=== PATIENT | male | born 1965 | race Caucasian/White ===

== ENCOUNTER 2022-03-22 12:49 | Outpatient (CLI) | payer MEDICAID, SELFPAY ==
--- NOTE | ~2022-03-22 | XR_ITS ---
EXAM: XR lumbar spine 2-3V DATE: 03/22/2022 13:09 HISTORY: M54.50 - Low back pain, unspecified, groin pain for years . COMPARISON: None available. FINDINGS: 5 nonrib-bearing lumbar-type vertebral bodies. Pedicles intact. Normal vertebral body alig nment. Vertebral body heights preserved. Multilevel moderate disc space narrowing and marginal osteop hytosis at all lumbar levels. Lower lumbar facet sclerosis. No fracture or dislocation. IMPRESSION: Multilevel moderate degenerative disc disease and facet arthropathy. Reviewed, dictated and finalized at location K. IMPRESSION: Multilevel moderate degenerative disc disease and facet arthropathy .
[2022-03-22 13:35] LABS: Basophils Absolute Auto 0.1 K/mm3 (0.0-0.1); Basophils Percent Auto 0.8 % (0.2-1.2); Eosinophils Absolute Auto 0.3 K/mm3 (0-0.3); Eosinophils Percent Auto 3.2 % (0-4.4); Hematocrit 44.4 % (42.0-52.0); Hemoglobin 15.1 g/dL (14.0-18.0); Immature Granulocyte Absolute 0.07 K/mm3 (0.00-0.031); Immature Granulocyte Percent A 0.8 % (0-0.5); Lymphocytes Absolute Auto 2.14 K/mm3 (0.9-3.2); Lymphocytes Percent Auto 23.5 % (18.3-44.2); Mean Corpuscular Hemoglobin 30.3 pg (26-34); Mean Platelet Volume 9.6 fl (7.4-10.4); Monocytes Absolute Auto 0.7 K/mm3 (0.1-0.6); Monocytes Percent Auto 7.7 % (2.6-8.5); Neutrophils Absolute Auto 5.9 K/mm3 (1.3-6.7); Platelet Count Result 281 k/mm3 (150-375); Red Blood Count 4.99 M/mm3 (4.6-6.20); Red Cell Distribution Width 12.7 % (11.5-14.5); White Blood Count 9.1 K/mm3 (4.5-10.0)
[2022-03-22 13:56] LABS: Hemoglobin A1C 5.5 % (<5.7)
[2022-03-22 14:16] LABS: Prostate Specific Antigen 0.5 ng/mL (< OR = 4.0)
[2022-03-22 14:53] LABS: Alanine Aminotransferase 69 U/L (6-50); Albumin Level 4.6 g/dL (3.5-5.1); Alkaline Phosphatase 85 U/L (38-126); Anion Gap -4 mmol/L (8-16); Aspartate Amino Transferase 41 U/L (17-59); Bilirubin,Total 0.3 mg/dL (0.2-1.3); Blood Urea Nitrogen 15 mg/dL (9-20); Calcium 9.3 mg/dL (8.4-10.2); Carbon Dioxide 35 mmol/L (22-30); Chloride 105 mmol/L (98-107); Cholesterol 315 mg/dL (0-200); Estimated Glomerular Filt Rate > 60; Glucose 98 mg/dL (65-110); LDL Cholesterol Direct 91 mg/dL; Potassium 4.2 mmol/L (3.4-5.0); Sodium 136 mmol/L (137-145)
[2022-03-22 14:54] LABS: Triglycerides 1245 mg/dL (<150)
== END 2022-03-22 12:50 | disposition home or self-care (01) ==
LOC: ANHIMG 12:57
PROVIDERS: PCP Internal Medicine; Visit Provider Nurse Practitioner
DX: G89.29 Other chronic pain (principal); Z12.5 Encounter for screening for malignant neoplasm of prostate; E78.5 Hyperlipidemia, unspecified; Z13.29 Encounter for screening for other suspected endocrine disorder; R73.9 Hyperglycemia, unspecified; M51.36 Other intervertebral disc degeneration, lumbar region
CPT/HCPCS: 36415; 72100; 80053; 80061; 83036; 84153; 85025; G0103

== ENCOUNTER 2022-05-20 08:00 | Outpatient (CLI) | payer OTHER, SELFPAY ==
[2022-05-24 14:48] LABS: Testosterone Free 35.7 pg/mL (35.0-155.0); Testosterone Total 194 ng/dL (250-1100)
== END 2022-05-20 08:01 | disposition home or self-care (01) ==
LOC: ANHGOSHLAB 08:02
PROVIDERS: PCP Internal Medicine; Visit Provider Nurse Practitioner
DX: R53.83 Other fatigue (principal)
CPT/HCPCS: 36415; 84402; 84403; 84443

== ENCOUNTER 2022-05-28 08:18 | Outpatient (CLI) | payer OTHER, SELFPAY ==
--- NOTE | ~2022-05-28 | MR_ITS ---
EXAMINATION: MR lumbar spine wo con DATE: 05/28/2022 09:27 INDICATION: Low back pain TECHNIQUE: Magnetic resonance imaging (MRI) of the lumbar spine was performed without intravenous con trast. Sequences included sagittal T2-weighted FSE, sagittal T2-weighted FS FSE, sagittal T1-weighted FSE, and axial T2-weighted FSE. COMPARISON: None FINDINGS: Transitional thoracolumbar segment which will be designated L1 and lumbarized S1 segment with 4 inter vening nonrib-bearing lumbar segments. 7 degrees lumbar levocurvature. 2 mm retrolisthesis L2 on L3 a nd 1-2 mm retrolisthesis L3 on L4, 3 mm retrolisthesis L4 on L5 and L5 on S1. Vertebral body heights are normal. Severe left side predominant disc height loss at L5-S1 and right-sided height loss at L4- L5, both with associated fibrofatty and fibrovascular degenerative endplate changes. Signal is otherw ise normal. Moderate disc height loss at L2-L3 and L3-L4. There are annular fissures at L2-L3 through L5-S1. The conus medullaris terminates at L2. There is normal signal in the caudal spinal cord. Para vertebral soft tissues are unremarkable. The following disc levels are specifically discussed: T12-L1: The disc does not extend beyond the endplate margin. There is mild left facet joint osteoarth ritis. There is no neural foraminal stenosis. There is no central canal stenosis. L1-L2: Disc is minimally bulging. There is left and moderate right facet joint osteoarthritis. There is minimal left neural foraminal stenosis. There is minimal central canal stenosis. L2-L3: Moderate diffuse disc bulge with superimposed annular fissure and right foraminal zone disc ex trusion with disc material extending 2-3 mm cephalad and caudal to the level of the endplates. There is moderate left and moderate to severe right facet joint osteoarthritis. There is mild left and mode rate right neural foraminal stenosis. There is mild central canal stenosis. L3-L4: Disc is mildly bulging with superimposed annular fissure and right foraminal zone disc extrusi on with disc material extending up to 2 mm cephalad and caudal to the level of the endplates. There i s mild left and moderate right facet joint osteoarthritis. There is mild bilateral, right greater griselda n left neural foraminal stenosis. There is mild central canal stenosis. L4-L5: Disc is mildly bulging with superimposed central to right foraminal zone disc extrusion with d isc material extending up to 3 mm caudal to the level of the superior endplate of L5. There is modera te right and severe left facet joint osteoarthritis. There is moderate right and mild to moderate lef t neural foraminal stenosis. There is mild central canal stenosis. L5-S1: Disc is bulging with superimposed annular fissure and central to left foraminal zone disc extr usion with disc material extending up to 3 mm caudal to the level of the superior endplate of S1. The re is moderate right and moderate to severe left facet joint osteoarthritis. There is mild to moderat e right and moderate left neural foraminal stenosis. There is mild central canal stenosis. S1-S2: The disc does not extend beyond the endplate margins. There is mild left and severe right face t osteoarthritis. There is mild left neural foraminal stenosis. There is no central canal stenosis. IMPRESSION: 1. Transitional thoracolumbar and lumbosacral segments with mild lumbar levocurvature. 2. Moderate to severe lower lumbar predominant spondylosis. Reviewed, dictated and finalized at location A. IMPRESSION: 1. Transitional thoracolumbar and lumbosacral segments with mild lumbar levocur vature. 2. Moderate to severe lower lumbar predominant spondylosis.
--- NOTE | ~2022-05-28 | MR_ITS ---
EXAMINATION: MR knee LT wo con DATE: 05/28/2022 09:27 INDICATION: Left knee pain TECHNIQUE: Magnetic resonance imaging (MRI) of the left knee was performed without intravenous contra st. Sequences included axial PD-weighted FS FSE, coronal PD-weighted FSE and PD-weighted FS FSE, sagi ttal PD-weighted FSE, and sagittal T2-weighted FS FSE. COMPARISON: Left knee x-rays 05/16/2022 FINDINGS: Medial compartment: Apical tear at the junction of the posterior horn and body of the medial meniscus in a background of degenerative signal change. Moderate diffuse thinning of cartilage. Mild osteophytosis. Lateral compartment: Meniscus intact. Mild diffuse cartilage thinning. Mild osteophytosis. Patellofemoral compartment: Moderate cartilage thinning and partial-thickness cartilage abnormalities along the medial facet mild osteophytosis. Retinacula intact. Ligaments and tendons: ACL, PCL, MCL, and LCL are intact. Flexor and extensor tendons are intact. Fluid: Small volume joint fluid. Subchondral/subcortical cyst in the posterior aspect of the medial tibial p lateau. Multiloculated cystic collection posterior to the distal femur, likely ganglion. Osseous/other: No suspicious focal or diffuse marrow signal. Minimal subchondral marrow edema on the median ridge of the patella IMPRESSION: 1. Apical tear at the junction of the posterior horn and body, medial meniscus. 2. Moderate tricompartmental osteoarthritic change. Reviewed, dictated and finalized at location K.
== END 2022-05-28 08:19 | disposition home or self-care (01) ==
PROVIDERS: PCP Internal Medicine; Visit Provider Nurse Practitioner
DX: M47.896 Other spondylosis, lumbar region (principal); M17.12 Unilateral primary osteoarthritis, left knee; S83.8X2A Sprain of other specified parts of left knee, initial encounter; X58.XXXA Exposure to other specified factors, initial encounter
CPT/HCPCS: 72148; 73721

== ENCOUNTER 2022-06-22 06:43 | Outpatient (RCR) | payer MEDICAID, SELFPAY ==
--- NOTE | 2022-06-22 12:57 | PCPTNOTE ---
Patient did not show up for scheduled initial evaluation this date.
== END 2022-09-13 10:09 | disposition home or self-care (01) ==
LOC: ANHGOSHPT 06:43
PROVIDERS: PCP Internal Medicine; Visit Provider Nurse Practitioner
DX: M54.50 Low back pain, unspecified (principal); G89.29 Other chronic pain
CPT/HCPCS: 99199

== ENCOUNTER 2022-07-01 17:10 | Emergency (ER) | payer OTHER, SELFPAY ==
--- NOTE | 2022-07-01 17:13 | ED.URI ---
HPI - URI/Sore Throat General Chief Complaint: Upper Respiratory Infection Stated Complaint: swollen throat, cough Time Seen by Provider: 07/01/22 17:13 Source: patient Mode of arrival: ambulatory Limitations: no limitations History of Present Illness HPI Narrative: Mr. Retana is a 56-year-old male patient presenting to the clinic today with complaints of sore throat, productive cough, and wheezing x4 days. He reports he had taken at home COVID test this afternoon around 1 PM and it was negative at that time. He denies any fever or chills. States he is bringing up yellow-white phlegm. Has history of COPD and is a current smoker. States he gets bronchitis every year around this time. Also feels as though his adenoids are swollen and he has pain with swallowing. Rates his pain currently a 5 out of 10. Related Data Home Medications Medication Instructions Recorded Confirmed lisinopril 20 1 tablet PO BID 02/14/22 05/16/22 mg-hydrochlorothiazide 12.5 mg tablet (Zestoretic) buspirone 10 mg tablet 10 mg PO BID 02/28/22 05/16/22 Allergies Allergy/AdvReac Type Severity Reaction Status Date / Time No Known Allergies Allergy Verified 07/01/22 17:26 Review of Systems Review of Systems: Pertinent positives per HPI. Patient denies any fever, chills, rash, headache, visual changes, dizziness, cough, runny nose, sore throat, shortness of breath, chest pain, palpitations, nausea, vomiting, diarrhea, constipation, abdominal pain, or any urinary issues. PMFSH Past Medical History Medical History Abdominal pain Anxiety Arthritis Bronchitis Chronic low back pain Congestion of nasal sinus COPD (chronic obstructive pulmonary disease) Coughing Degenerative disc disease Diarrhea Dizziness GERD (gastroesophageal reflux disease) Hair loss History of postoperative complication of surgical procedure Hyperglycemia Hyperlipidemia Hypertension IBS (irritable bowel syndrome) Left knee pain Light headedness Pain in left eye Patellofemoral arthritis Screening for endocrine disorder Screening PSA (prostate specific antigen) Seasonal allergies Sleep apnea Urinary hesitancy Wheezing Family History Family History Father Alcoholism in family member COPD (chronic obstructive pulmonary disease) Hypertension Mother Lung cancer Hypertension Sibling Hypertension Daughter Hypertension Other Arthritis Heart disease High cholesterol Social History Social History Social History: Caffeine-Soda Smoking packs per day: 1.5 Smoking cigarettes per day: 30.0 Years smoked: 15 Smoking pack-years: 22.50 Smoking status: Current every day smoker Tobacco type: cigarettes Second hand tobacco smoke exposure: Yes Alcohol intake: current Alcohol use details: everyday Substance use: current Substance use type: marijuana Gender identity (if verbalized by the patient): Male Comments At the time of my signature, I reviewed and agree with the nursing past medical, surgical, social, and family history. There is no relevant family history pertinent to the patient complaint. Exam Narrative: General: Well-developed, well nourished, in no apparent distress Head: Normocephalic, atraumatic Eyes: Pupils equally round and reactive to light bilaterally, EOM intact, sclera and conjunctive clear, no discharge, lids normal Ears: TMs intact and clear, ear canals ceruminous, no drainage, grossly hearing normal. Nose: Nares patent, no discharge, no inflammation, no sinus tenderness. Mouth: Oropharynx without lesions or masses, good dentition, MMM. Oropharynx red, postnasal drip Neck: Supple, trachea midline, positive enlargement of anterior cervical nodes, no thyroid masses or goiter palpable. Cardio: Regular rate and rhythm, s1
[2022-07-01 17:15] VITALS: BP 143/103; PULSE 62; RESP 16; TEMP 36.6; O2SAT 100
== END 2022-07-01 17:35 | disposition home or self-care (01) ==
PROVIDERS: Emergency Provider Nurse Practitioner Family; PCP Internal Medicine
DX: J40 Bronchitis, not specified as acute or chronic (principal); J02.9 Acute pharyngitis, unspecified; F17.210 Nicotine dependence, cigarettes, uncomplicated; J44.9 Chronic obstructive pulmonary disease, unspecified; K21.9 Gastro-esophageal reflux disease without esophagitis; E78.5 Hyperlipidemia, unspecified; I10 Essential (primary) hypertension; M17.10 Unilateral primary osteoarthritis, unspecified knee; G47.30 Sleep apnea, unspecified; F41.9 Anxiety disorder, unspecified
CPT/HCPCS: 99213; G0463

== ENCOUNTER 2022-07-26 12:36 | Outpatient (CLI) | payer OTHER, SELFPAY ==
--- NOTE | ~2022-07-26 | CT_ITS ---
EXAMINATION: CT lung screening DATE: 07/26/2022 12:51 INDICATION: Personal history of nicotine dependence, current smoker with 40 pack year history TECHNIQUE: Computed tomography (CT) of the chest was performed without intravenous contrast. The dose -length product (DLP) was 183.83 mGy-cm. Automated exposure control and iterative reconstruction tech [employer] were employed. COMPARISON: None FINDINGS: The lungs are free of acute opacities. No suspicious pulmonary nodules are identified. No p leural effusion or pneumothorax. No pathologically enlarged thoracic lymph nodes are identified. The heart size is normal. Calcified coronary artery atherosclerosis is noted. There is moderate thoracic spondylosis. IMPRESSION: 1. Lung-RADS category 1: Negative. Continue annual screening with noncontrast low-dose chest CT in 12 months. Reviewed, dictated and finalized at location A. IMPRESSION: 1. Lung-RADS category 1: Negative. Continue annual screening with noncontrast l ow-dose chest CT in 12 months.
== END 2022-07-26 12:37 | disposition home or self-care (01) ==
LOC: ANHIMG 12:38
PROVIDERS: PCP Internal Medicine; Visit Provider Nurse Practitioner
DX: Z12.2 Encounter for screening for malignant neoplasm of respiratory organs (principal); Z87.891 Personal history of nicotine dependence
CPT/HCPCS: 71271

== ENCOUNTER 2022-09-20 01:11 | Day surgery (SDC) | payer OTHER, SELFPAY ==
[2022-09-08 09:19] VITALS: BMI 27.6
[2022-09-20 07:46] VITALS: BP 159/82; PULSE 97; RESP 20; TEMP 36.4; O2SAT 98; BMI 26.9
[2022-09-20] MEDS: LACTATED RINGERS 1,000 ML 150 ML IV CONT (07:52)
--- NOTE | 2022-09-20 08:14 | WPDANESEPPF ---
Anes - Initial Pre Proc Eval Procedure: Operation Date: 09/20/22 10:00 Proposed Procedures p Esophagogastroduodenoscopy & Screening Colonoscopy - Cornel Cain MD Date/Time: 09/20/22 08:14 Surgeon: Cornel Cain MD Pre Op Diagnosis: GERD, neoplasm screening Patient Data Age: 56 Gender: M Height: 1.93 m Weight: 100.5 kg Last Vital Signs Temp 97.6 F 09/20/22 07:46 Pulse 97 09/20/22 07:46 Resp 20 09/20/22 07:46 BP 159/82 H 09/20/22 07:46 Pulse Ox 98 09/20/22 07:46 O2 Del Method Room Air 09/20/22 07:46 Allergies Allergy/AdvReac Type Severity Reaction Status Date / Time No Known Allergies Allergy Verified 09/20/22 07:45 Home Medications Medication Instructions Recorded Confirmed Type amlodipine 10 mg tablet 10 mg PO DAILY #90 tabs 05/17/22 09/08/22 Rx sertraline 100 mg tablet 200 mg PO DAILY #180 tabs 05/20/22 09/08/22 Rx albuterol sulfate 90 mcg/actuation 2 puff inhalation Q4H PRN 07/01/22 09/08/22 Rx aerosol inhaler (ProAir HFA) shortness of breath or wheezing 30 days #8.5 grams fluticasone 250 mcg-salmeterol 50 1 inh inhalation BID #60 ea 07/20/22 09/08/22 Rx mcg/dose blistr powdr for inhalation (Advair Diskus) Patient hx anesthesia problems: none Family hx anesthesia problems: none Results Review: All pre-operative results and documents have been reviewed as part of the pre-operative evaluation. [facility] Past Medical History Medical History (Updated 08/19/22 @ 12:35 by MARKOS Royal) Abdominal pain Anxiety Arthritis Bronchitis Chronic low back pain Congestion of nasal sinus COPD (chronic obstructive pulmonary disease) Coughing Degenerative disc disease Diarrhea Dizziness GERD (gastroesophageal reflux disease) Hair loss History of postoperative complication of surgical procedure Hyperglycemia Hyperlipidemia Hypertension IBS (irritable bowel syndrome) Left knee pain Light headedness Pain in left eye Patellofemoral arthritis Screening for endocrine disorder Screening PSA (prostate specific antigen) Seasonal allergies Sleep apnea Urinary hesitancy Wheezing Family History Family History Father Alcoholism in family member COPD (chronic obstructive pulmonary disease) Hypertension Mother Lung cancer Hypertension Sibling Hypertension Daughter Hypertension Other Arthritis Heart disease High cholesterol Social History Social History Social History: Caffeine-Soda Smoking packs per day: 0.5 Smoking cigarettes per day: 10.0 Years smoked: 218 Smoking pack-years: 109.00 Smoking status: Current every day smoker Tobacco type: cigarettes Second hand tobacco smoke exposure: Yes Alcohol intake: current Alcohol use details: every other day-6 beers Substance use: current Substance use type: marijuana Living arrangements: alone Gender identity (if verbalized by the patient): Male Spiritual care concerns: No Anes - Eval Final PreProcedure Day of Procedure 09/20/22 08:14 Patient weight: normal Heart: regular rate and rhythm Lungs: clear to auscultation Airway: Mallampati scale class II Neurological: alert and oriented Last oral intake: >/= 8 hours ASA classification: III Emergent: no Anesthetic plan: proceed Anesthesia type and monitoring: general GIVS and standard monitoring Results Review: All pre-operative results and documents have been reviewed as part of the pre-operative evaluation. Informed Consent: The patient's anesthetic plan and its attendant risks and benefits were discussed with the patient/family/POA. Questions were solicited and answers provided to the satisfaction of the patient/family/POA.
--- NOTE | 2022-09-20 08:43 | PM.HPGS ---
History of Present Illness History of Present Illness Consent: Risks, benefits, and alternatives have been discussed and questions answered. Patient agrees to proceed with procedure. Chief complaint: GERD, neoplasm screening Narrative: Power Retana is a 56 year old male with intermittent dysphagia, also loose stools. Never had scopes. Review of Systems Constitutional: Constitutional: Denies headache(s) and Denies weakness Eyes: Eyes: Denies blurry vision ENT: Reports Normal hearing present, Denies headache(s) and Denies neck pain Cardiovascular: Cardiovascular: Denies chest pain and Denies dyspnea Respiratory: Respiratory: Denies dyspnea Gastrointestinal: Gastrointestinal: Reports no additional gastrointestinal complaints Genitourinary: Genitourinary: Denies dysuria Musculoskeletal: Musculoskeletal: Denies neck pain Integumentary/Breasts: Skin/Breast: Denies dry skin Neurologic: Reports Normal hearing present, Denies headache(s) and Denies weakness Psychiatric: Psychiatric: Denies anxiety Endocrine: Endocrine: Denies change in body appearance Hematologic/Lymphatic: Hematologic/Lymphatic: Denies easy bleeding Allergic/Immunologic: Allergic/Immunologic: Denies urticaria PMFSH Past Medical History Medical History (Updated 08/19/22 @ 12:35 by Cherie Larios, MANUFACTURING APPLICATIONS ENGINEER-C) Abdominal pain Anxiety Arthritis Bronchitis Chronic low back pain Congestion of nasal sinus COPD (chronic obstructive pulmonary disease) Coughing Degenerative disc disease Diarrhea Dizziness GERD (gastroesophageal reflux disease) Hair loss History of postoperative complication of surgical procedure Hyperglycemia Hyperlipidemia Hypertension IBS (irritable bowel syndrome) Left knee pain Light headedness Pain in left eye Patellofemoral arthritis Screening for endocrine disorder Screening PSA (prostate specific antigen) Seasonal allergies Sleep apnea Urinary hesitancy Wheezing Family History Family History Father Alcoholism in family member COPD (chronic obstructive pulmonary disease) Hypertension Mother Lung cancer Hypertension Sibling Hypertension Daughter Hypertension Other Arthritis Heart disease High cholesterol Social History Social History Social History: Caffeine-Soda Smoking packs per day: 0.5 Smoking cigarettes per day: 10.0 Years smoked: 218 Smoking pack-years: 109.00 Smoking status: Current every day smoker Tobacco type: cigarettes Second hand tobacco smoke exposure: Yes Alcohol intake: current Alcohol use details: every other day-6 beers Substance use: current Substance use type: marijuana Living arrangements: alone Gender identity (if verbalized by the patient): Male Spiritual care concerns: No Meds Home Medications and Allergies Home Medications Medication Instructions Recorded Confirmed Type amlodipine 10 mg tablet 10 mg PO DAILY #90 tabs 05/17/22 09/08/22 Rx sertraline 100 mg tablet 200 mg PO DAILY #180 tabs 05/20/22 09/08/22 Rx albuterol sulfate 90 mcg/actuation 2 puff inhalation Q4H PRN 07/01/22 09/08/22 Rx aerosol inhaler (ProAir HFA) shortness of breath or wheezing 30 days #8.5 grams fluticasone 250 mcg-salmeterol 50 1 inh inhalation BID #60 ea 07/20/22 09/08/22 Rx mcg/dose blistr powdr for inhalation (Advair Diskus) Allergies Allergy/AdvReac Type Severity Reaction Status Date / Time No Known Allergies Allergy Verified 09/20/22 07:45 Vital Signs Vital Signs - 24 hr 09/20/22 07:46 Temperature 97.6 F Pulse Rate 97 Respiratory Rate 20 Blood Pressure 159/82 H Pulse Oximetry 98 Oxygen Delivery Room Air Exam Const: General: comfortable and no acute distress HENMT: Face/Nose/Sinus: Normal nares present Eyes: General: appearance normal, both eyes and all related structures Neck: Neck: no JVD Res
--- NOTE | 2022-09-20 09:00 | SUR.OPER ---
EGD END 857 COLONOSCOPY START 899
[2022-09-20 09:14] VITALS: BP 114/69; PULSE 59; RESP 21; O2SAT 93
[2022-09-20 09:24] VITALS: BP 111/72; PULSE 69; RESP 19; O2SAT 100
[2022-09-20 09:34] VITALS: BP 122/80; PULSE 75; RESP 20; O2SAT 100
== END 2022-09-20 09:45 | disposition home or self-care (01) ==
PROVIDERS: PCP Internal Medicine; Visit Provider Internal Medicine Gastroenterology
PROC: 0DJ08ZZ Inspection of Upper Intestinal Tract, Via Natural or Artificial Opening Endoscopic (ICD-10-PCS; CPT 43235; principal; 2022-09-20 10:00)
DX: Z12.11 Encounter for screening for malignant neoplasm of colon (principal); K64.8 Other hemorrhoids; D12.5 Benign neoplasm of sigmoid colon; D13.1 Benign neoplasm of stomach; K21.9 Gastro-esophageal reflux disease without esophagitis; J44.9 Chronic obstructive pulmonary disease, unspecified; F41.9 Anxiety disorder, unspecified; I10 Essential (primary) hypertension; G47.30 Sleep apnea, unspecified; Z79.51 Long term (current) use of inhaled steroids; F17.210 Nicotine dependence, cigarettes, uncomplicated; F12.90 Cannabis use, unspecified, uncomplicated
CPT/HCPCS: 45385; 45380; 43239; 88305; J2704; J7120

== ENCOUNTER 2022-11-08 14:41 | Outpatient (CLI) | payer OTHER, SELFPAY ==
--- NOTE | ~2022-11-08 | MR_ITS ---
EXAMINATION: MR brain/brain stem wo/w con DATE: 11/08/2022 15:28 INDICATION: Frequent headaches. TECHNIQUE: Magnetic resonance imaging (MRI) of the brain and brainstem was performed without and with 20 mL MultiHance intravenous contrast. COMPARISON: None. FINDINGS: There are areas of increased T2-weighted signal intensity in the dick, which is within norm al limits for the patient's age. There is no intracranial hemorrhage, acute infarction, or abnormal i ntracranial mass lesion. The ventricles are normal in size. There is a small left mastoid effusion. T here is mild mucosal thickening in the paranasal sinuses. The orbits are normal. IMPRESSION: 1. Normal aging brain. Reviewed, dictated and finalized at location A. OGICAL TECHNICAL OFFICER IMPRESSION: 1. Normal aging brain.
== END 2022-11-08 14:42 | disposition home or self-care (01) ==
PROVIDERS: PCP Internal Medicine; Visit Provider Clinical Nurse Specialist
DX: R51.9 Headache, unspecified (principal)
CPT/HCPCS: 70553; A9577

== ENCOUNTER 2022-12-02 14:19 | Outpatient (CLI) | payer OTHER, SELFPAY ==
--- NOTE | ~2022-12-02 | US_ITS ---
EXAMINATION: US scrotum doppler DATE: 12/02/2022 15:18 INDICATION: Left testicular lump TECHNIQUE: Testicular sonogram utilizing grayscale and Doppler COMPARISON: None. FINDINGS: The right testis measures 5.2 x 2.5 x 2.9 cm. The left testis measures 4.5 x 2.4 x 3.3 cm T here is normal vascular flow to both testes. The right epididymis demonstrates a 1.2 cm cyst or sperm atocele. The left epididymis contains a 3.2 x 2.5 x 3.6 cm cyst versus spermatocele. There is no vari cocele or hydrocele. IMPRESSION: 1. Bilateral cysts or spermatoceles of the epididymides measuring up to 3.2 cm on the left. Urologic evaluation is recommended. Reviewed, dictated and finalized at location B. OR MAINFRAME DEVELOPER
== END 2022-12-02 14:20 | disposition home or self-care (01) ==
PROVIDERS: PCP Internal Medicine; Visit Provider Nurse Practitioner
DX: N50.89 Other specified disorders of the male genital organs (principal)
CPT/HCPCS: 76870; 93976

== ENCOUNTER 2022-12-05 01:27 | Day surgery (SDC) | payer OTHER, SELFPAY ==
[2022-11-28 10:52] VITALS: BMI 28.4
[2022-12-05 09:02] VITALS: BP 183/94; PULSE 69; RESP 18; TEMP 36.4; O2SAT 98; BMI 28.0
[2022-12-05] MEDS: LACTATED RINGERS 1,000 ML 150 ML IV CONT (09:22)
--- NOTE | 2022-12-05 09:29 | WPDANESEPPF ---
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 Patient Data Age: 57 Gender: M Height: 1.93 m Weight: 104.6 kg Last Vital Signs Temp 36.4 C L 12/05/22 09:02 Pulse 69 12/05/22 09:02 Resp 18 12/05/22 09:02 BP 183/94 H 12/05/22 09:02 Pulse Ox 98 12/05/22 09:02 O2 Del Method Room Air 12/05/22 09:02 Allergies Allergy/AdvReac Type Severity Reaction Status Date / Time No Known Allergies Allergy Verified 12/05/22 09:11 Home Medications Medication Instructions Recorded Confirmed Type amlodipine 10 mg tablet 10 mg PO DAILY #90 tabs 05/17/22 12/05/22 Rx albuterol sulfate 90 mcg/actuation 2 puff inhalation Q4H PRN 07/01/22 12/05/22 Rx aerosol inhaler (ProAir HFA) shortness of breath or wheezing 30 days #8.5 grams fluticasone 250 mcg-salmeterol 50 1 inh inhalation BID #60 ea 07/20/22 12/05/22 Rx mcg/dose blistr powdr for inhalation (Advair Diskus) hydrocodone 5 mg-acetaminophen 325 1 tablet PO Q4-6H PRN Pain 11/18/22 12/05/22 History mg tablet lisinopril 20 mg tablet 20 mg PO DAILY 11/18/22 12/05/22 History sertraline 100 mg tablet 100 mg PO DAILY 11/18/22 12/05/22 History fluticasone propionate 50 1 - 2 spray intranasal BID #16 mL 11/24/22 12/05/22 Rx mcg/actuation nasal spray,suspension (Flonase Allergy Relief) omeprazole 20 mg capsule,delayed 20 mg PO DAILY #30 caps 11/24/22 12/05/22 Rx release Patient hx anesthesia problems: none Family hx anesthesia problems: none Results Review: All pre-operative results and documents have been reviewed as part of the pre-operative evaluation. [facility] Past Medical History Medical History Abdominal pain Anxiety Arthritis Bronchitis Chronic low back pain Congestion of nasal sinus COPD (chronic obstructive pulmonary disease) Coughing Degenerative disc disease Diarrhea Dizziness GERD (gastroesophageal reflux disease) Hair loss History of postoperative complication of surgical procedure Hyperglycemia Hyperlipidemia Hypertension IBS (irritable bowel syndrome) Left knee pain Light headedness Pain in left eye Patellofemoral arthritis Screening for endocrine disorder Screening PSA (prostate specific antigen) Seasonal allergies Sleep apnea Urinary hesitancy Wheezing Family History Family History Father Alcoholism in family member COPD (chronic obstructive pulmonary disease) Hypertension Mother Lung cancer Hypertension Sibling Hypertension Daughter Hypertension Other Arthritis Heart disease High cholesterol Social History Social History Social History: Caffeine-Soda Smoking packs per day: 0.5 Smoking cigarettes per day: 10.0 Years smoked: 30 Smoking pack-years: 15.00 Smoking status: Current every day smoker Tobacco type: cigarettes Second hand tobacco smoke exposure: Yes Alcohol intake: current Drinks per week: 24 Alcohol use details: BEERS Substance use: current Substance use type: marijuana Lack of Transportation: No Lack of Food: Never True Current Housing: I Have Housing Concerned About Future Housing: No Difficulty Paying Gas/Electric Bills: No Difficulty Paying for Meds: No Currently Unemployed: No Education: Grade School Difficulty w/ Childcare or Family Care: No Living arrangements: alone Gender identity (if verbalized by the patient): Male Spiritual care concerns: No Anes - Eval Final PreProcedure Day of Procedure 12/05/22 09:29 Patient weight: overweight Heart: regular rate and rhythm Lungs: clear to auscultation Airway: Mallampati scale
--- NOTE | 2022-12-05 09:52 | PM.HPGS ---
History of Present Illness History of Present Illness Consent: Risks, benefits, and alternatives have been discussed and questions answered. Patient agrees to proceed with procedure. 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 during last EGD, need to reassess Review of Systems Constitutional: Constitutional: Denies headache(s) and Denies weakness Eyes: Eyes: Denies blurry vision ENT: Reports Normal hearing present, Denies headache(s) and Denies neck pain Cardiovascular: Cardiovascular: Denies chest pain and Denies dyspnea Respiratory: Respiratory: Denies dyspnea Gastrointestinal: Gastrointestinal: Reports no additional gastrointestinal complaints Genitourinary: Genitourinary: Denies dysuria Musculoskeletal: Musculoskeletal: Denies neck pain Integumentary/Breasts: Skin/Breast: Denies dry skin Neurologic: Reports Normal hearing present, Denies headache(s) and Denies weakness Psychiatric: Psychiatric: Denies anxiety Endocrine: Endocrine: Denies change in body appearance Hematologic/Lymphatic: Hematologic/Lymphatic: Denies easy bleeding Allergic/Immunologic: Allergic/Immunologic: Denies urticaria PMFSH Past Medical History Medical History (Updated 12/05/22 @ 09:54 by Cornel Cain MD) Abdominal pain Anxiety Arthritis Bronchitis Chronic low back pain Congestion of nasal sinus COPD (chronic obstructive pulmonary disease) Coughing Degenerative disc disease Diarrhea Dizziness GERD (gastroesophageal reflux disease) Hair loss History of postoperative complication of surgical procedure Hyperglycemia Hyperlipidemia Hypertension IBS (irritable bowel syndrome) Left knee pain Light headedness Pain in left eye Patellofemoral arthritis Polyp of stomach Screening for endocrine disorder Screening PSA (prostate specific antigen) Seasonal allergies Sleep apnea Urinary hesitancy Wheezing Family History Family History Father Alcoholism in family member COPD (chronic obstructive pulmonary disease) Hypertension Mother Lung cancer Hypertension Sibling Hypertension Daughter Hypertension Other Arthritis Heart disease High cholesterol Social History Social History Social History: Caffeine-Soda Smoking packs per day: 0.5 Smoking cigarettes per day: 10.0 Years smoked: 30 Smoking pack-years: 15.00 Smoking status: Current every day smoker Tobacco type: cigarettes Second hand tobacco smoke exposure: Yes Alcohol intake: current Drinks per week: 24 Alcohol use details: BEERS Substance use: current Substance use type: marijuana Lack of Transportation: No Lack of Food: Never True Current Housing: I Have Housing Concerned About Future Housing: No Difficulty Paying Gas/Electric Bills: No Difficulty Paying for Meds: No Currently Unemployed: No Education: Grade School Difficulty w/ Childcare or Family Care: No Living arrangements: alone Gender identity (if verbalized by the patient): Male Spiritual care concerns: No Meds Home Medications and Allergies Home Medications Medication Instructions Recorded Confirmed Type amlodipine 10 mg tablet 10 mg PO DAILY #90 tabs 05/17/22 12/05/22 Rx albuterol sulfate 90 mcg/actuation 2 puff inhalation Q4H PRN 07/01/22 12/05/22 Rx aerosol inhaler (ProAir HFA) shortness of breath or wheezing 30 days #8.5 grams fluticasone 250 mcg-salmeterol 50 1 inh inhalation BID #60 ea 07/20/22 12/05/22 Rx mcg/dose blistr powdr for inhalation (Advair Diskus) hydrocodone 5 mg-acetaminophen 325 1 tablet PO Q4-6H PRN Pain 11/18/22 12/05/22 History mg tablet lisinopril 20 mg tablet 20 mg PO DAILY 11/18/22 12/05/22 History sertraline 100 mg tablet 100 mg PO DAILY 11/18/22 12/05/22 History
[2022-12-05 10:17] VITALS: BP 145/76; PULSE 59; RESP 26; O2SAT 98
--- NOTE | 2022-12-05 10:22 | SUR.PHASEII ---
Made Dr. Leach and Dr. Black aware patient had broken tooth from yesterday 12/04/22. Patient had small piece come loose while in recovery. Patient states nothing feels different than it did before the procedure and that this tooth broke yesterday. Patient asked to have this piece of tooth thrown away. Dr. Leach and Dr. Black to bedside to speak with patient.
[2022-12-05 10:27] VITALS: BP 158/86; PULSE 56; RESP 18; O2SAT 99
[2022-12-05 10:37] VITALS: BP 165/98; PULSE 57; RESP 19; O2SAT 97
== END 2022-12-05 10:40 | disposition home or self-care (01) ==
PROVIDERS: PCP Internal Medicine; Visit Provider Internal Medicine Gastroenterology
PROC: 0DJ08ZZ Inspection of Upper Intestinal Tract, Via Natural or Artificial Opening Endoscopic (ICD-10-PCS; CPT 43235; principal; 2022-12-05 10:30)
DX: Z09 Encounter for follow-up examination after completed treatment for conditions other than malignant neoplasm (principal); K31.7 Polyp of stomach and duodenum; K21.9 Gastro-esophageal reflux disease without esophagitis; J44.9 Chronic obstructive pulmonary disease, unspecified; I10 Essential (primary) hypertension; E78.5 Hyperlipidemia, unspecified; K58.9 Irritable bowel syndrome, unspecified; G47.30 Sleep apnea, unspecified; F17.210 Nicotine dependence, cigarettes, uncomplicated; Z79.51 Long term (current) use of inhaled steroids
CPT/HCPCS: 43251; 88305; J2704; J7120

== ENCOUNTER 2022-12-29 13:29 | Outpatient (CLI) | payer OTHER, SELFPAY ==
--- NOTE | 2022-12-29 13:53 | ECHO_ITS ---
Patient Info Name: Power Willson Young Age: 57 years : 1965 Gender: Male Ht: 76 in Wt: 230 lbs BSA: 2.38 m2 HR: 59 bpm BP: 174 / 96 mmHg Technical Quality: Good Exam Date: 12/29/2022 2:01 PM Exam Location: [facility] Patient Status: Outpatient Admit Date: 12/29/2022 Staff Ordering Physician: Claudia Roberts NP Polymerization Helper: Sera Abbasi RDCS Attending Provider: Claudia Roberts NP Referring Physician: Armando DE SANTIAGO; Exam Type: CA echo doppler color flow Study Info Indications I10 - Essential (primary) hypertension Complete two-dimensional, color flow and Doppler transthoracic echocardiogram is performed. Summary 1. Complete two-dimensional, color flow and Doppler transthoracic echocardiogram is performed. 2. Left ventricular chamber dimension is normal. 3. Left ventricular systolic function is normal, estimated at 55-60%. 4. There is moderate concentric increased left ventricular wall thickness. 5. The left ventricular diastolic function is grade II diastolic dysfunction. 6. E/e' 8 is minimally elevated. 7. Global longitudinal strain is normal at -17.6%. 8. Left atrial chamber dimension is mildly enlarged. 9. There is mild aortic valve sclerosis. 10. No pulmonary hypertension, estimated pulmonary arterial systolic pressure is 29 mmHg. Left Ventricle E/e' 8 is minimally elevated. Global longitudinal strain is normal at -17.6%. Left ventricular chamber dimension is normal. Left ventricular systolic function is normal, estimated at 55-60%. There is moderate concentric increased left ventricular wall thickness. The left ventricular diastolic function is grade II diastolic dysfunction. Right Ventricle Right ventricular systolic function is normal and with normal TAPSE 2.9 cm. Right ventricular chamber dimension is normal. Left Atria Left atrial chamber dimension is mildly enlarged. Right Atria Right atrial chamber dimension is normal. Aortic Valve The aortic valve is trileaflet. There is mild aortic valve sclerosis. There is no aortic valve stenosis. There is no aortic valve regurgitation. Pulmonic Valve There is no pulmonic regurgitation. Mitral Valve There is no mitral valve stenosis. There is no mitral valve regurgitation. Tricuspid Valve There is no tricuspid valve regurgitation. No pulmonary hypertension, estimated pulmonary arterial systolic pressure is 29 mmHg. Pericardium/Pleural There is no pericardial effusion. Inferior Vena Cava Normal inferior vena cava with >50% collapse upon inspiration consistent with normal right atrial pressure, 5 mmHg. Aorta The aortic root size at the sinus of Valsalva is normal. Left Ventricular Outflow Tract Name Value Normal LVOT 2D LVOT Diameter 2.1 cm LVOT Doppler LVOT Peak Gradient 7 mmHg LVOT Mean Gradient 3 mmHg LVOT VTI 24 cm LVOT VTI/AV VTI Ratio 0.9 LVOT Stroke Volume 86 ml LVOT CO 4.6 l/min LVOT CI
== END 2022-12-29 13:30 | disposition home or self-care (01) ==
PROVIDERS: PCP Internal Medicine; Visit Provider Nurse Practitioner
DX: I10 Essential (primary) hypertension (principal)
CPT/HCPCS: 93306

== ENCOUNTER 2023-01-03 15:18 | Outpatient (RCR) | payer OTHER, SELFPAY ==
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
--- NOTE | 2023-03-03 16:25 | PCPTNOTE ---
PHYSICAL THERAPY DISCHARGE 03-03-23 Attending Provider: Claudia Roberts NP Patient:Power Retana Date of :1965 Power has not returned for any further treatments since the initial evaluation on 01/03/2023, for the diagnosis of dizziness. Therefore he will be discharged at this time. Thank you for referring this patient to [facility].
== END 2023-03-15 10:16 | disposition home or self-care (01) ==
LOC: ANHPT 15:18
PROVIDERS: PCP Internal Medicine; Visit Provider Nurse Practitioner
DX: R42 Dizziness and giddiness (principal)
CPT/HCPCS: 97110; 97162

== ENCOUNTER 2023-04-07 09:21 | Outpatient (CLI) | payer OTHER, SELFPAY ==
[2023-04-07 12:11] LABS: Basophils Absolute Auto 0.1 K/mm3 (0.0-0.1); Basophils Percent Auto 0.7 % (0.2-1.2); Eosinophils Absolute Auto 0.2 K/mm3 (0-0.3); Eosinophils Percent Auto 2.6 % (0-4.4); Hemoglobin 15.3 g/dL (14.0-18.0); Immature Granulocyte Absolute 0.03 K/mm3 (0.00-0.031); Immature Granulocyte Percent A 0.3 % (0-0.5); Lymphocytes Absolute Auto 2.05 K/mm3 (0.9-3.2); Lymphocytes Percent Auto 23.2 % (18.3-44.2); Mean Corpuscular HGB Conc 32.6 g/dl (32-36); Mean Corpuscular Hemoglobin 29.5 pg (26-34); Mean Corpuscular Volume 90.6 fl (80-100); Mean Platelet Volume 10.2 fl (7.4-10.4); Monocytes Absolute Auto 0.5 K/mm3 (0.1-0.6); Monocytes Percent Auto 5.9 % (2.6-8.5); Neutrophils Percent Auto 67.3 % (45.5-73.1); Platelet Count Result 307 k/mm3 (150-375); Red Blood Count 5.19 M/mm3 (4.6-6.20); Red Cell Distribution Width 12.8 % (11.5-14.5); White Blood Count 8.8 K/mm3 (4.5-10.0)
[2023-04-07 12:33] LABS: Alanine Aminotransferase 31 U/L (6-50); Albumin Level 4.7 g/dL (3.5-5.1); Alkaline Phosphatase 87 U/L (38-126); Anion Gap 7 mmol/L (8-16); Aspartate Amino Transferase 45 U/L (17-59); Bilirubin,Total 0.5 mg/dL (0.2-1.3); Blood Urea Nitrogen 19 mg/dL (9-20); Calcium 9.2 mg/dL (8.4-10.2); Carbon Dioxide 27 mmol/L (22-30); Chloride 106 mmol/L (98-107); Cholesterol 255 mg/dL (0-200); Estimated Glomerular Filt Rate > 60; Glucose 97 mg/dL (65-110); HDL Direct 30 mg/dL; Potassium 4.4 mmol/L (3.4-5.0); Sodium 140 mmol/L (137-145); Triglycerides 374 mg/dL (<150)
[2023-04-07 12:44] LABS: LDL Cholesterol Direct 145 mg/dL
[2023-04-07 12:57] LABS: Prostate Specific Antigen 0.4 ng/mL (< OR = 4.0)
[2023-04-07 13:18] LABS: Iron 68 ug/dL (49-181)
[2023-04-07 13:31] LABS: Percent Iron Saturation 21 % (20-50)
[2023-04-13 04:10] LABS: LH 3.1 mIU/mL (1.5-9.3); Prolactin 3.9 ng/mL (***)
[2023-04-13 12:04] LABS: Testosterone Free 46.9 pg/mL (35.0-155.0); Testosterone Total 237 ng/dL (250-1100)
== END 2023-04-07 09:22 | disposition home or self-care (01) ==
LOC: ANHGOSHLAB 09:22
PROVIDERS: PCP Internal Medicine; Visit Provider Internal Medicine
DX: E29.1 Testicular hypofunction (principal); I10 Essential (primary) hypertension; N52.9 Male erectile dysfunction, unspecified; Z79.890 Hormone replacement therapy
CPT/HCPCS: 36415; 80053; 80061; 83002; 83540; 83550; 84146; 84153; 84402; 84403; 84443; 85025

== ENCOUNTER 2023-05-22 14:43 | Outpatient (CLI) | payer OTHER, SELFPAY ==
--- NOTE | ~2023-05-22 | US_ITS ---
Procedure: Duplex Doppler examination of the bilateral carotids. Indication: Syncope Technique: Real time, color-flow and pulse wave Doppler examination of the bilateral carotids was performed. Findings: Soares scale ultrasonography of the right neck demonstrated minimal calcified plaque at the right carot id bulb. There was demonstration of normal color-flow and Doppler waveforms within the right common, internal and external carotid arteries. The peak systolic velocities in the right common, internal an d external carotid arteries were demonstrated to be 108 cm/sec, 93 cm/sec and 107 cm/sec respectively . The right ICA/CCA ratio was 1.1.The proximal right internal carotid artery demonstrates 0% stenosis relative to the normal distal artery lumen diameter. Soares scale sonography of the left neck demonstrated small calcified plaques at the left carotid bulb. There was demonstration of normal color-flow and wave forms within the left common, internal and ext ernal carotid arteries. The peak systolic velocities in the left common, internal and external caroti d arteries were demonstrated to be 86cm/sec, 73 cm/sec and 90 cm/sec respectively. The left ICA/CCA r atio was 0.9. The proximal left internal carotid artery demonstrates 0% stenosis relative to the norm al distal artery lumen diameter. There was antegrade flow demonstrated in the bilateral vertebral arteries. Impression: No hemodynamically significant stenosis of the bilateral internal carotid arteries. Antegrade flow in the bilateral vertebral arteries. Note: The methodology used is an indirect measurement validated against a direct method (such as the NASCET criteria) that compares diameters at the stenosis to the distal ICA. Reviewed, dictated and finalized at location . Impression: No hemodynamically significant stenosis of the bilateral internal carotid arter ies. Antegrade flow in the bilateral vertebral arteries. Note: The methodology used is an indirect measurement validated against a direct meth od (such as the NASCET criteria) that compares diameters at the stenosis to the distal ICA.
== END 2023-05-22 14:44 | disposition home or self-care (01) ==
LOC: ANHIMG 14:44
PROVIDERS: PCP Internal Medicine; Visit Provider Nurse Practitioner
DX: R55 Syncope and collapse (principal)
CPT/HCPCS: 93880

== ENCOUNTER 2023-05-26 08:39 | Outpatient (CLI) | payer OTHER, SELFPAY ==
--- NOTE | 2023-05-30 11:09 | WPDNEUROLOGY ---
Neurology EEG Report General Information Date of Study: 06/26/23 TEST eeg DIAGNOSIS Syncope and collapse CONDITION OF RECORDING awake drowsy and sleep EEG NUMBER [id number] CLINICAL HISTORY patient reports he has had 3 episodes of becoming sweaty dizzy then losing consciousness for few seconds he does also have intermittent dizziness throughout most of the days. EEG DESCRIPTION Basic resting occipital frequency consists of low voltage 9 to 11 hertz per 2nd alpha admixed with low-voltage 15 to 18 hertz per 2nd beta. During drowsiness low-voltage beta activity seen diffusely. Bilateral symmetrical sleep activity seen during sleep. Hyperventilation not done. Photic stimulation produced normal drive. Intermittent regular EKG artifact is noted throughout the tracing. Non paroxysmal. Nonfocal. Nonlateralizing. IMPRESSION Normal record without evidence of any paroxysmal activity clinical correlation recommended
== END 2023-05-26 08:40 | disposition home or self-care (01) ==
LOC: ANHNEURO 08:40
PROVIDERS: PCP Internal Medicine; Visit Provider Internal Medicine
DX: R55 Syncope and collapse (principal)
CPT/HCPCS: 95816

== ENCOUNTER 2023-10-04 06:55 | Outpatient (CLI) | payer OTHER, SELFPAY ==
--- NOTE | ~2023-10-04 | CT_ITS ---
CT ANGIOGRAM NECK AND HEAD History: Syncope. Technique: Axial noncontrast imaging of the brain was performed. Serial spiral axial images through t he head and neck were then obtained during arterial phase IV injection of 100 cc of Omnipaque 350. 3- D postprocessing and MIP images were then reconstructed on the remote workstation. Dose reduction magaly hnique was used on this scan by utilizing automated exposure control and iterative reconstruction magaly hnique. The dose-length product (DLP) was 1907.34 mGy-cm. CTA neck findings: Bilateral vertebral arteries are patent. Bowel, carotid, internal carotid, and ex ternal carotid arteries are patent. No large vessel occlusion. No stenosis or aneurysm. Small calcifi ed plaques are present about the left carotid bifurcation without stenosis. The proximal right music internship al carotid artery demonstrates 0% stenosis relative to the normal distal artery lumen diameter. The p roximal left internal carotid artery demonstrates 0% stenosis relative to the normal distal artery gabriella men diameter. CTA head findings: Distal vertebral arteries, basilar artery, and posterior cerebral arteries are pat ent. Distal internal carotid arteries, middle cerebral arteries, and anterior cerebral arteries are p atent. No large vessel occlusion. No stenosis or aneurysm. Axial noncontrast imaging of the brain is unremarkable. No intracranial hemorrhage, mass lesion, or a cute infarct seen. Soares-white differentiation preserved. Ventricles and subarachnoid spaces are unrem arkable. Paranasal sinuses and mastoid air cells are clear. No mass effect or midline shift. Impression: Unremarkable exam. Reviewed, dictated and finalized at location . ER SIFTER HELPER Impression: Unremarkable exam.
[2023-10-04 07:17] LABS: Estimated Glomerular Filt Rate > 60
== END 2023-10-04 06:56 | disposition home or self-care (01) ==
PROVIDERS: PCP Internal Medicine; Visit Provider Student in an Organized Health Care Education/Training Program
DX: R55 Syncope and collapse (principal)
CPT/HCPCS: 70496; 70498; Q9967

== ENCOUNTER 2023-12-13 08:33 | Outpatient (CLI) | payer OTHER, SELFPAY ==
[2023-12-13 11:40] LABS: Basophils Absolute Auto 0.1 K/mm3 (0.0-0.1); Basophils Percent Auto 0.9 % (0.2-1.2); Eosinophils Absolute Auto 0.2 K/mm3 (0-0.3); Eosinophils Percent Auto 2.3 % (0-4.4); Hematocrit 48.1 % (42.0-52.0); Hemoglobin 15.8 g/dL (14.0-18.0); Immature Granulocyte Absolute 0.05 K/mm3 (0.00-0.031); Immature Granulocyte Percent A 0.5 % (0-0.5); Lymphocytes Percent Auto 14.2 % (18.3-44.2); Mean Corpuscular HGB Conc 32.8 g/dl (32-36); Mean Corpuscular Hemoglobin 28.9 pg (26-34); Mean Corpuscular Volume 87.9 fl (80-100); Mean Platelet Volume 10.1 fl (7.4-10.4); Monocytes Absolute Auto 0.7 K/mm3 (0.1-0.6); Monocytes Percent Auto 6.5 % (2.6-8.5); Neutrophils Percent Auto 75.6 % (45.5-73.1); Platelet Count Result 331 k/mm3 (150-375); Red Blood Count 5.47 M/mm3 (4.6-6.20); Red Cell Distribution Width 13.2 % (11.5-14.5); White Blood Count 10.5 K/mm3 (4.5-10.0)
[2023-12-13 12:31] LABS: Cholesterol 240 mg/dL (0-200); HDL Direct 32 mg/dL; Triglycerides 286 mg/dL (<150)
[2023-12-13 12:44] LABS: LDL Cholesterol Direct 146 mg/dL
[2023-12-13 12:50] LABS: Alanine Aminotransferase 20 U/L (6-50); Alkaline Phosphatase 95 U/L (38-126); Anion Gap 7 mmol/L (8-16); Aspartate Amino Transferase 51 U/L (17-59); Bilirubin,Total 0.5 mg/dL (0.2-1.3); Blood Urea Nitrogen 21 mg/dL (9-20); Calcium 9.4 mg/dL (8.4-10.2); Carbon Dioxide 30 mmol/L (22-30); Chloride 102 mmol/L (98-107); Estimated Glomerular Filt Rate > 60; Glucose 140 mg/dL (65-110); Potassium 3.5 mmol/L (3.4-5.0); Sodium 139 mmol/L (137-145)
[2023-12-13 13:08] LABS: Prostate Specific Antigen 0.6 ng/mL (< OR = 4.0)
[2023-12-16 09:49] LABS: Apolipoprotein B 138 mg/dL (<90)
[2023-12-18 13:10] LABS: Testosterone Free 244.4 pg/mL (35.0-155.0); Testosterone Total 791 ng/dL (250-1100)
== END 2023-12-13 08:34 | disposition home or self-care (01) ==
LOC: ANHGOSHLAB 08:35
PROVIDERS: Clinical Nurse Specialist; PCP Internal Medicine; Visit Provider Internal Medicine
DX: E29.1 Testicular hypofunction (principal); I10 Essential (primary) hypertension; Z79.890 Hormone replacement therapy; Z12.5 Encounter for screening for malignant neoplasm of prostate
CPT/HCPCS: 36415; 80053; 80061; 82172; 84153; 84402; 84403; 85025

== ENCOUNTER 2024-04-15 08:38 | Outpatient (CLI) | payer OTHER, SELFPAY ==
[2024-04-15 13:34] LABS: Basophils Absolute Auto 0.1 K/mm3 (0.0-0.1); Basophils Percent Auto 0.5 % (0.2-1.2); Eosinophils Absolute Auto 0.1 K/mm3 (0-0.3); Eosinophils Percent Auto 1.4 % (0-4.4); Hemoglobin 16.9 g/dL (14.0-18.0); Immature Granulocyte Absolute 0.04 K/mm3 (0.00-0.031); Immature Granulocyte Percent A 0.4 % (0-0.5); Lymphocytes Absolute Auto 1.48 K/mm3 (0.9-3.2); Lymphocytes Percent Auto 14.9 % (18.3-44.2); Mean Corpuscular HGB Conc 33.8 g/dl (32-36); Mean Corpuscular Hemoglobin 30.2 pg (26-34); Mean Corpuscular Volume 89.4 fl (80-100); Mean Platelet Volume 9.6 fl (7.4-10.4); Monocytes Absolute Auto 0.6 K/mm3 (0.1-0.6); Monocytes Percent Auto 6.5 % (2.6-8.5); Neutrophils Absolute Auto 7.6 K/mm3 (1.3-6.7); Neutrophils Percent Auto 76.3 % (45.5-73.1); Platelet Count Result 318 k/mm3 (150-375); Red Blood Count 5.59 M/mm3 (4.6-6.20); Red Cell Distribution Width 13.2 % (11.5-14.5); White Blood Count 9.9 K/mm3 (4.5-10.0)
[2024-04-15 13:41] LABS: Cholesterol 177 mg/dL (0-200); HDL Direct 47 mg/dL; Triglycerides 243 mg/dL (<150)
[2024-04-15 13:45] LABS: Alanine Aminotransferase 29 U/L (6-50); Albumin Level 4.6 g/dL (3.5-5.1); Alkaline Phosphatase 83 U/L (38-126); Anion Gap 8 mmol/L (4-12); Aspartate Amino Transferase 56 U/L (17-59); Bilirubin,Total 0.4 mg/dL (0.2-1.3); Blood Urea Nitrogen 17 mg/dL (9-20); Carbon Dioxide 31 mmol/L (22-30); Chloride 100 mmol/L (98-107); Cholesterol 174 mg/dL (0-200); Estimated Glomerular Filt Rate > 60; Glucose 113 mg/dL (65-110); HDL Direct 47 mg/dL; Potassium 3.3 mmol/L (3.4-5.0); Sodium 139 mmol/L (137-145); Triglycerides 240 mg/dL (<150)
[2024-04-15 13:52] LABS: LDL Cholesterol Direct 98 mg/dL
[2024-04-15 13:56] LABS: LDL Cholesterol Direct 99 mg/dL
[2024-04-19 15:33] LABS: Testosterone Free 294.3 pg/mL (35.0-155.0); Testosterone Total 873 ng/dL (250-1100)
[2024-04-30 15:19] LABS: Apolipoprotein B 95 mg/dL
== END 2024-04-15 08:39 | disposition home or self-care (01) ==
PROVIDERS: PCP Internal Medicine; Visit Provider Internal Medicine
DX: E29.1 Testicular hypofunction (principal); Z79.890 Hormone replacement therapy
CPT/HCPCS: 36415; 80053; 80061; 82172; 84402; 84403; 85025

== ENCOUNTER 2024-07-30 15:31 | Outpatient (CLI) | payer OTHER, SELFPAY ==
[2024-07-30 20:00] LABS: Anion Gap 8 mmol/L (4-12); Blood Urea Nitrogen 15 mg/dL (9-20); Calcium 9.1 mg/dL (8.4-10.2); Carbon Dioxide 28 mmol/L (22-30); Chloride 103 mmol/L (98-107); Estimated Glomerular Filt Rate > 60; Glucose 84 mg/dL (65-110); Magnesium 2.3 mg/dL (1.6-2.3); Potassium 3.7 mmol/L (3.4-5.0); Sodium 139 mmol/L (137-145)
[2024-08-05 14:49] LABS: Apolipoprotein B 102 mg/dL
== END 2024-07-30 15:32 | disposition home or self-care (01) ==
LOC: ANHGOSHLAB 15:33
PROVIDERS: PCP Internal Medicine; Visit Provider Internal Medicine
DX: E87.6 Hypokalemia (principal); E78.5 Hyperlipidemia, unspecified; Z79.890 Hormone replacement therapy
CPT/HCPCS: 36415; 80048; 82172; 83735

== ENCOUNTER 2024-09-05 08:18 | Outpatient (CLI) | payer OTHER, SELFPAY ==
--- NOTE | ~2024-09-05 | CT_ITS ---
EXAMINATION: CT sinus wo con DATE: 09/05/2024 08:31 INDICATION: Acute recurrent maxillary sinusitis. TECHNIQUE: Computed tomography (CT) of the paranasal sinuses was performed without intravenous contra st. Iterative reconstruction technique was employed. The dose-length product was 312.04 mGy-cm. COMPARISON: Head CT 10/04/2023 FINDINGS: There is mild mucosal thickening in right frontal sinus and the bilateral ethmoid sinuses. There is mild mucosal thickening in the sphenoid and maxillary sinuses. There is rightward deviation of the nasal septum. Right ostiomeatal unit is occluded, but there is a patent secondary right maxill viktor ostium. Left ostiomeatal unit is patent. There is extensive dental disease. There are clefts in t he hard palate and left anterior maxillary alveolar process. IMPRESSION: 1. Mild mucosal thickening in the paranasal sinuses. 2. Rightward deviation of the nasal septum. 3. Extensive dental disease. 4. 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 Reviewed, dictated and finalized at location A. OMER DATA TECHNICIAN
== END 2024-09-05 08:19 | disposition home or self-care (01) ==
PROVIDERS: PCP Internal Medicine; Visit Provider Otolaryngology
DX: J01.01 Acute recurrent maxillary sinusitis (principal); H69.90 Unspecified Eustachian tube disorder, unspecified ear; Z87.730 Personal history of (corrected) cleft lip and palate; K11.23 Chronic sialoadenitis; J34.2 Deviated nasal septum
CPT/HCPCS: 70486

== ENCOUNTER 2025-04-18 10:10 | Outpatient (RCR) | payer OTHER, SELFPAY ==
--- NOTE | 2025-04-18 11:58 | OPREHPOC ---
Outpatient Therapy Plan of Care This is a Multidisciplinary Plan of Care that may contain components documented by all disciplines (PT, OT, and ST.) PT Problem 1 PT Problem #1 Knowledge Deficit PT Goal 1 Goal / Goal Update *independent with HEP Target Visit 8 PT Problem 2 PT Problem #2 Pain PT Goal 1 Goal / Goal Update * pt report headaches 2x/wk Target Visit 8 PT Problem 3 PT Problem #3 Impaired Strength PT Goal 1 Goal / Goal Update *increase cervical thoracic strength: pt stand with shoulders in correct position/posture Target Visit 8 PT Problem 4 PT Problem #4 Impaired Vestibular System PT Goal 1 Goal / Goal Update 1* pt rate dizziness rating at worst of 5/10 ( 0= no and 10= cannot walk) 2* pt perform standing eye tracking R/L x 20 reps without increase in symptoms 3* pt perform standing 360' turn to R and L 1x without an increase in symptom 4* in standing , pt look up to ceiling 3x without issue Target Visit 8
--- NOTE | 2025-04-18 11:58 | PTOPEVAL1 ---
Assessment and note entered by Sona Carrero, PT Evaluation Information Assessment Status Evaluation ICD-10 Condition Codes (PT) Dizziness and Giddiness R42;vestibular rehab Onset December 2024 Subjective Information chronic issues with vertigo, but about 3 months ago, came on and has not stopped with antibiotics; also having headache on L side of head; have seen ENT and neuro dr; with hearing test: R ear is less hearing; ears pop all time- L worse; at eye dr-- have eye drops to not have glaucoma; wear reading glasses have anxiety and sometimes freak out when worried, get short of breath and sweating symptoms: dizziness, spinning, blacking out feeling, cannot talk or walk; increase: with looking down, turning around decrease: when gets worse, takes few hours to clear, but usually 10 minutes work: bo, not work consistently; not worked much since L knee arthroscopy, trying to get back to full work Reported Pain Level Pain Score 4: Self Report Additional Pain Score Comments pain range in the past few days 0-4/10; headache comes and goes over L eye and side of head sometimes get cold feeling over R side of face, sweating and anxious about the dizziness rating of dizziness: all time 5 and at worst 10/10 and black out Assessment PT Clinical Summary Power has the diagnosis of dizziness, vestibular rehab. He has a chronic history of dizziness, but for the past 3 months has stayed constantly dizzy, worse and blacks out. Dizziness Handicap Index rating of 72. Dizziness increases most with looking down and standing and turning around. Medical history: chronic neck and back pain, HTN, COPD, recurrent sinus infections, deviated septum , cleft palate, eye drops for glaucoma--always had trouble with his eyes & moving them makes him dizzy; decreased hearing R ear, headaches. With the evaluation: BPPV testing was negative for anterior, posterior and horizontal canals; eye tracking increased his symptoms; poor neck posture with muscle spasms over cervical and upper traps areas. Skilled PT services are indicated for modalities to decrease cervical- thoracic muscle tightness and therapeutic exercises to improve posture; vestibular rehab to improve and assist with adaptation of vestibular system, with education for home exercises, posture and safety. Plan of Care Interventions Electrical Stimulation,Hot Pack/Cold Pack,Manual Therapy,Mechanical Traction,Neuro Re-education, Patient/Caregiver Education,Therapeutic Activities ,Therapeutic Exercise,Ultrasound,Other Other Interventions taping PT Services Indicated Yes Treatment Frequency and 1-2x/wk for 8 visits Duration These treatments will address the objective and functional deficits as defined above. The patient will be advanced safely and appropriately in order for the patient to progress towards his/her prior level of function. Additional exercises will be introduced and as well as a comprehensive home exercise program upon discharge, if needed, ?to ensure carryover of functional gains achieved in the clinic. This treatment plan has been reviewed and agreement upon by the patient.
--- NOTE | 2025-04-18 14:35 | PCPTNOTE ---
pt was 10 minutes late for initial eval appt, stated he was not able to find us.
--- NOTE | 2025-05-23 10:40 | OPREHPOC ---
Outpatient Therapy Plan of Care This is a Multidisciplinary Plan of Care that may contain components documented by all disciplines (PT, OT, and ST.) PT Problem 1 PT Problem #1 Knowledge Deficit PT Goal 1 Goal / Goal Update *independent with HEP 05-23-25 d/c pt stopped attending therapy goals not addressed Target Visit 8 PT Problem 2 PT Problem #2 Pain PT Goal 1 Goal / Goal Update * pt report headaches 2x/wk 05-23-25 d/c pt stopped attending therapy goals not addressed Target Visit 8 PT Problem 3 PT Problem #3 Impaired Strength PT Goal 1 Goal / Goal Update *increase cervical thoracic strength: pt stand with shoulders in correct position/posture 05-23-25 d/c pt stopped attending therapy goals not addressed Target Visit 8 PT Problem 4 PT Problem #4 Impaired Vestibular System PT Goal 1 Goal / Goal Update 1* pt rate dizziness rating at worst of 5/10 ( 0= no and 10= cannot walk) 2* pt perform standing eye tracking R/L x 20 reps without increase in symptoms 3* pt perform standing 360' turn to R and L 1x without an increase in symptom 4* in standing , pt look up to ceiling 3x without issue 05-23-25 d/c pt stopped attending therapy goals not addressed Target Visit 8
--- NOTE | 2025-05-23 10:40 | PTOPDC ---
Assessment and note entered by Sona Carrero, PT Assessment Status Discharge - Pt Not Present ICD-10 Condition Codes (PT) Dizziness and Giddiness R42 Onset December 2024 Subjective Information pt was not seen this date. Assessment PT Clinical Summary Power received the PT evaluation on April 18 for the diagnosis of dizziness. He then called and canceled therapy on May 06. Discharge PT. The goals were not addressed. Plan of Care PT Services Indicated No
== END 2025-05-23 13:55 | disposition home or self-care (01) ==
LOC: ANHPT 10:10
PROVIDERS: PCP Internal Medicine
DX: R42 Dizziness and giddiness (principal)
CPT/HCPCS: 97110; 97162; 97530

== ENCOUNTER 2025-07-03 09:10 | Outpatient (CLI) | payer OTHER, SELFPAY ==
--- OUTSIDE RECORDS SUMMARY | 2025-07-03 09:25 | XMS_ITS | Clinical Summary ---
Author Organization [facility] Address [address] [place] [address] Phone Care Team Providers Care Instructor Physical Name Role Phone Roc Vivar DO Primary Care Provider Social History Tobacco Use Types Packs/Day Years Used Date Smoking Tobacco: Never Assessed Sex and Gender Information Value Date Recorded Sex Assigned at Not on file Legal Sex Male 12:41 AM CDT Gender Identity Not on file Sexual Orientation Not on file Plan of Treatment Health Maintenance Due Date Last Done Comments Hepatitis C Virus (HCV) Screening 1965 TdaP Immunization 1965 Cologuard 2009 Colonoscopy 2009 Colorectal Cancer Screening 2009 Immunochemical Fecal Occult Blood 2009 Pneumococcal Immunization (5 0+ years) (1 of 1 - PCV) 2014 Zoster Immunization (1 of 2) 2014 Influenza Immunization (#1) 2025 SARS-COV-2 Immunization ( - season) 2025 Respiratory Syncytial Virus (RSV) Immunization (Adult) (1 - 1-dose 75+ series) 2039 Hepatitis B Immunization Aged Out No longer eligible based on patient's age to complete this topic Human Papillomavirus (HPV) Immunization Aged Out No longer eligible b ased on patient's age to complete this topic Meningococcal Immunization (ACWY) Aged Out No longer eligible based on patient's age to complete this topic Rotavirus Immunization Aged Out No lo nger eligible based on patient's age to complete this topic Insurance [place] Care Teams Instructor Physical Relationship Specialty Start Date End Date Roc Vivar DO [facility] [place] [address] PCP - General Internal Medicine 07/27/22
--- OUTSIDE RECORDS SUMMARY | 2025-07-03 09:25 | XMS_ITS | Clinical Summary ---
Author Organization [facility] [employer] Address [address] [place] [address] Care Team Providers Care Stand Up Forklift Operator Name Role Phone Roc Vivar DO Primary Care Provider [phone] Source Comments [facility],non-owned Affiliates and Associated Physician Practices is amultiple site organization consisting of ambulatory clinics and hospital sitesin [place], [place], [place] and [place]. This disclosure is being madepursuant to the Care Everywhere program and may not contain all information available regarding this patient. Last updated 18.[facility] Allergies No known active allergies Medications * Be aware that medications may not be up to date on this document. Alwaysverify current medications with the patient. ciclopirox (Penlac) 8 % solutionIndicat ions:Onychomyco sis Apply to nail daily. 30 days supply. 6.6 mL 5 3 Active Additional Information Patient not taking.Reported on 07/19/2023 amLODIPine (Norvasc) 10 MG tablet 3 Active sertraline (Zoloft) 50 MG tablet 3 Active atorvastatin (Lipitor) 10 MG tablet Atorvastatin Calcium 10 MG Oral Tablet QTY: 30 tablet Days: 30 Refills: 0 Written: 04/10/23 Patient Instructions: 3 Active hydroCHLOROthia zide (Hydrodiuril) 25 MG tablet 3 Active LOSARTAN POTASSIUM PO Take 25 mg by mouth once daily Active HYDROcodone-Mark taminophen (NORCO PO) Take 1 tablet by mouth 3 times daily PRN Active oxyCODONE, immediate release, (Roxicodone) 5 MG tabletIndicatio ns:Lipoma of scalp Take 1 (one) tablet by mouth every 6 hours as needed for Pain 6 tablet 3 Active Additional Information Patient not taking.Reported on 08/22/2023 docusate sodium (Colace) 100 MG capsule Take 1 (one) capsule by mouth once daily as needed for Constipation 5 capsule 3 Active Additional Information Patient not taking.Reported on 10/03/2023 Advair Diskus 250-50 MCG/ACT inhaler Inhale 1 (one) puff by mouth 2 times daily 3 Active testosterone cypionate (Depo-Testoster one) 200 MG/ML injection 3 Active tadalafil (Cialis) 5 MG tablet 1 (one) tablet Activ e Active Problems Problem Noted Date Diagnosed Date Microscopic hematuria 09/05/2023 Spermatocele 09/05/2023 Tobacco use disorder 09/05/2023 Social History Tobacco Use Types Packs/Day Years Used Date Smoking Tobacco: Every Day Cigarettes Smokeless Tobacco: Never Tobacco Cessation:Ready to Q uit: Not Asked; Counseling Given: Not Answered Alcohol Use Standard Drinks/Week Comments Yes 0 (1 standard drink = 0.6 oz pur e alcohol) 3-4 days a week. 4-5 drinks Sex and Gender Information Value Date Recorded Sex Assigned at Not on file Legal Sex Male 10:18 AM CDT Gender Identity Not on file Sexual Orientation Not on file Last Filed Vital Signs Vital Sign Reading Time Taken Comments Blood Pressure 166/83 03/21/2024 10:18 AM CDT Pulse 63 03/21/2024 10:18 AM CDT Temperature 36.6 C (97.9 F) 03/21/2024 10:18 AM CDT Respiratory Rate 18 03/21/2024 10:18 AM CDT Oxygen Saturation 96% 03/21/2024 10:18 AM CDT Inhaled Oxygen Concentration - - Weight 95.3 kg (210 lb) 03/21/2024 10:18 AM CDT Height 193 cm (6' 4) 03/21/2024 10:18 AM CDT Body Mass Index 25.56 03/21/2024 10:18 AM CDT Plan of Treatment Health Maintenance Due Date Last Done Comments YOSELIN (AGES 45-75) - COLON CA SCREENING 1964 COLON MONITORING 1964 COLONOSCOPY - COLON CA SCREENING 1964 CT COLONOGRAPHY - COLON CA SCREENING 1964 Colorectal Cancer Screening 1964 FIT - COLON CA SCREENING 1964 FLEX SIG - COLON CA SCREENING 1964 HIV SCREENING 1979 HEPATITIS C SCREENING 11/06/1982 DTAP/TDAP/TD VACCINES (1 - Tdap) 1983 PNEUMOCOCCAL VACCINE 50+ (1 of 2 - PCV) 1983 ZOSTER VACCINE (1 of 2) 2014 COVID-19 VACCINE (1 - season) 2024 DEPRESSION SCREENING 10/30/2024 INFLUENZA VACCINE (#1) 2025 SCREENING FOR DIABETES 08/07/2026 3, 04/01/2023, 04/01/2023, Additional history exists Respiratory Syncytial Virus (RSV) Vaccine Pt: or over 60 yrs (1 - 1-dose 75+ series) 2039 HEPATITIS B VACCINE Aged Out No longe r eligible based on patient's age to complete this topic HIB VACCINE Aged Out No longer eligi ble based on patient's age to complete this topic HPV VACCINE Aged Out No longer eligi ble based on patient's age to complete this topic MENINGOCOCCAL (Group B) VACCINE SHARED DECISION-MAKING Aged Out No longer eligible based on patient's age to complete this topic MENINGOCOCCAL GROUPS A/C/Y/W VACCINE Aged Out No longer eligible based on patient's age to complete this topic Procedures Procedure Name Priority Date/Time Associated Diagnosis Comments BASIC METABOLIC PANEL (CALCIUM TOTAL) STAT 08/07/2023 8:12 AM CDT Pre-op evaluation from Last 3 Months or Most Recently Relevant to Health Maintenance Results * (ABNORMAL) BASIC METABOLIC PANEL (CALCIUM TOTAL) (08/07/2023 8:12 AM CDT) Glucose 108(H) 70 - 105 mg/dL 08/07/2023 8:44 AM CDT [facility] Sodium 140 136 - 145 mmol/L 08/07/2023 8:44 AM CDT [facility] Potassium 3.9 3.5 - 5.1 mmol/L 08/07/2023 8:44 AM CDT [facility] Chloride 111(H) 98 - 107 mmol/L 08/07/2023 8:44 AM CDT [facility] CO2 22 22 - 29 mmol/L 08/07/2023 8:44 AM CDT [facility] Calcium 8.7 8.4 - 10.4 mg/dL 08/07/2023 8:44 AM CDT [facility] Anion Gap 7 6 - 16 mmol/L 08/07/2023 8:44 AM CDT [facility] BUN 15 7 - 26 mg/dL 08/07/2023 8:44 AM CDT [facility] Creatinine 1.00 0.72 - 1.25 mg/dL 08/07/2023 8:44 AM CDT [facility] eGFR by CKD-EPI 87(L) >=90 mL/min/1.7 3 m2 08/07/2023 8:44 AM CDT [facility] Blood BLOOD SPECIMEN / Unknown Venipuncture / Unknown 08/07/2023 8:12 AM CDT 08/07/2023 8:19 AM CDT Cassie Larios MD LAB - CHEMISTRY ORDERABLES Aubrie [email or web address] Result Performing Organization Address City/State/[facility] Co de Phone Number [facility] [address] [place] [address] from Last 3 Months or Most Recently Relevant to Health Maintenance Insurance [facility] Care Teams Stand Up Forklift Operator Relationship Specialty Start Date End Date Roc Vivar DO PCP - General 01/31/23
--- OUTSIDE RECORDS SUMMARY | 2025-07-03 09:25 | XMS_ITS | Clinical Summary ---
Author Organization [facility] Address [address] [place] [address] Care Team Providers Care Order Selector Name Role Phone Roc Vivar DO Primary Care Provider [phone] Silas Solis MD Unavailable [phone] Allergies No known active allergies Medications sertraline (ZOLOFT) 100 mg tablet TAKE 1 AND 1/2 TABLETS BY MOUTH EVERY DAY 135 tablet 7 Active lisinopril (PRINIVIL,ZESTR IL) 40 mg tablet Take 1 tablet (40 mg total) by mouth daily. 90 tablet 7 Active albuterol HFA (PROVENTIL HFA) 90 mcg/actuation inhaler Inhale 2 puffs 4 (four) times a day as needed for wheezing. 1 Inhaler 1 7 Active diazePAM (VALIUM) 5 mg tablet Take 1 tablet (5 mg total) by mouth 3 (three) times a day as needed for muscle spasms. 10 tablet 8 Active naproxen (NAPROSYN) 500 mg tablet Take 1 tablet (500 mg total) by mouth 2 (two) times a day with meals. 30 tablet 8 Active lidocaine viscous (XYLOCAINE) 2 % solution Take 10 mL by mouth every 3 (three) hours 1 Bottle 0 Active traMADoL (ULTRAM) 50 mg tablet Take 1 tablet (50 mg total) by mouth every 6 (six) hours as needed for pain 20 tablet 1 Active amLODIPine (NORVASC) 10 mg tablet Take 1 tablet (10 mg total) by mouth daily 30 tablet 1 Active tadalafiL (CIALIS) 5 mg tablet 1 tablet (5 mg total) Active losartan (COZAAR) 25 mg tablet 4 Active hydroCHLOROthia zide (HYDRODIURIL) 25 mg tablet 3 Active HYDROcodone-margo taminophen (NORCO) 5-325 mg per tablet Active famotidine (PEPCID) 10 mg tablet Take 1 tablet (10 mg total) by mouth 2 (two) times a day Active testosterone cypionate (DEPO-TESTOTERO NE) 200 mg/mL injection 3 Active Advair Diskus 250-50 mcg/dose diskus inhaler Inhale 1 puff 2 (two) times a day 4 Active gabapentin (NEURONTIN) 100 mg capsule 4 Active rosuvastatin (CRESTOR) 5 mg tablet 4 Active azelastine (ASTELIN) 137 mcg (0.1 %) nasal spray Administer 1 spray into each nostril 2 (two) times a day Use in each nostril as directed 30 mL 11 5 Active fluticasone propionate (FLONASE) 50 mcg/actuation nasal spray Administer 2 sprays into each nostril daily 1 each 11 5 Active cetirizine (ZyrTEC) 10 mg tablet Take 1 tablet (10 mg total) by mouth daily 30 tablet 11 5 03/13/20 26 Active losartan (COZAAR) 25 mg tablet Take 1 tablet (25 mg total) by mouth daily for 9 doses 9 tablet 5 Active Active Problems Problem Noted Date Diagnosed Date Anxiety disorder 06/03/2024 Chronic obstructive pulmonary disease 06/03/2024 Hyperlipidemia 06/03/2024 Syncope and collapse 12/29/2023 HTN (hypertension) 12/29/2023 Lower urinary tract symptoms due to benign prostatic hyperplasia 12/29/2022 Primary erectile dysfunction 12/29/2022 Spermatocele 12/29/2022 Pain of lower extremity 10/18/2022 Acute bronchitis 11/09/2019 Acute bronchospasm 11/09/2019 Acute maxillary sinusitis 11/09/2019 Diverticulosis of large intestine without hemorr nichelle 11/11/2017 Acute low back pain 11/03/2017 Microscopic hematuria 11/03/2017 Assessment & Plan (11/03/2017 1:32 PM FABRICATION AND LAYOUT CRAFTSMAN): Ct abd/pel ordered to R/O kidney stones. Patient citing lack of insurance, and he isn't sure he will have the study done. Referred to urology for further eval/tx. Rx given for acute pain relief. Patient understands that we do not manage chronic pain at this office. History of acute pancreatitis 10/10/2017 Essential hypertension 10/10/2017 Assessment & Plan (11/03/2017 1:32 PM FABRICATION AND LAYOUT CRAFTSMAN): Hypertension is improving with treatment. Dietary sodium restriction. Regular aerobic exercise. Stop smoking. Continue current medications. Blood pressure will be reassessed at the next regular appointment. Reactive airway disease 10/10/2017 Tobacco use disorder 10/10/2017 Assessment & Plan (11/03/2017 1:33 PM FABRICATION AND LAYOUT CRAFTSMAN): Advised patient to quit. Alcohol abuse 10/10/2017 Encounters Date Type Department Care Team Description 06/26/2025 Telephone [facility] Medicine Otolaryngology [address] [place] [address] Jayden LincolnMS peace 06/08/2025 8:31 PM CDT - 06/08/2025 9:36 PM CDT Emergency [facility] Emergency Department [address] [place] [address] Primary hypertension (Primary Dx); Medication refill Discharge Disposition: Discharge to home or self care 05/13/2025 8:00 AM CDT Procedure visit [facility] Medicine Otolaryngology [address] [facility] [address] [place] [address] [place] [address] Shasha Neff Au.D. Dizziness and giddiness (Primary Dx) from Last 3 Months Immunizations Immunization Administration Dates Next Due Influenza, Unspecified 10/10/2017(Deferred: Chitra ent Refused) Surgical History Surgery Date Site/Laterality Comments CLEFT PALATE REPAIR ESOPHAGOGASTRODUODENOSCOPY 07/19/2022 ESOPHAGOGASTRODUODENOSCOPY 11/30/2022 - 12/27/2022 COLONOSCOPY 07/19/2022 Medical History Medical History Date Comments Pancreatitis 07/2017 Hypertension Alcohol abuse Tobacco abuse Asthma Colon polyp Esophageal polyp BPV (benign positional vertigo) Family History Medical History Relation Name Comments No Known Problems Brother COPD Father Hypertension Father Heart failure Mother Hypertension Mother Lung cancer Mother No Known Problems Sister Relation Name Status Comments Brother Father Mother Sister Social History Tobacco Use Types Packs/Day Years Used Date Smoking Tobacco: Every Day Cigarettes 2 15 Smokeless Tobacco: Never Tobacco Cessation:Ready to Q uit: Not Asked; Counseling Given: Not Answered Alcohol Use Standard Drinks/Week Comments Yes 0 (1 standard drink = 0.6 oz pur e alcohol) socially AUDIT-C Answer Date Recorded Q1: How often do you have a drink containing alcohol? 4 or more times a week 06/27/2024 Q2: How many drinks containi ng alcohol do you have on a typical day when you are drinking? 5 or 6 Q3: How often do you have si x or more drinks on one occasion? Weekly 06/27/2024 Personal Safety Answer Date Recorded Have you ever been in or are you currently in a harmful physical or emotional relationship or is someone making you feel afraid or unsafe? Denies 06/08/2025 Sex and Gender Information Value Date Recorded Sex Assigned at Not on file Legal Sex Male 7:09 PM FABRICATION AND LAYOUT CRAFTSMAN Gender Identity Not on file Sexual Orientation Not on file Obstetrics History Last Filed Vital Signs Vital Sign Reading Time Taken Comments Blood Pressure 180/87 06/08/2025 9:30 PM CDT Pulse 54 06/08/2025 9:30 PM CDT Temperature 36.8 C (98.3 F) 06/08/2025 8:14 PM CDT Respiratory Rate 18 06/08/2025 8:14 PM CDT Oxygen Saturation 96% 06/08/2025 9:30 PM CDT Inhaled Oxygen Concentration - - Weight 97.5 kg (215 lb) 06/08/2025 8:14 PM CDT Height 193 cm (6' 4) 06/08/2025 8:14 PM CDT Body Mass Index 26.17 06/08/2025 8:14 PM CDT Plan of Treatment Health Maintenance Due Date Last Done Comments Prostate Cancer Screening-PSA 1964 Hepatitis B Screening 1982 Regular Well Visit/Exam 18-64 1982 Pneumococcal vaccine <65 (1 of 2 - PCV) 1983 Lung Cancer Screening 2014 Zoster Vaccine (1 of 2) 2014 Depression Screening 10/10/2018 10/10/2017, 07/28/2017, 07/04/2017, Additional history exists Colon Cancer Screening-Colonoscopy Discontinued DTaP/Tdap/Td Vaccine Discontinued Hepatitis C Screening Discontinued Influenza Vaccine Discontinued Insurance [facility] Care Teams Order Selector Relationship Specialty Start Date End Date Roc Vivar DO [address] [place] [address] [address] [place] [address] PCP - General Internal Medicine 06/27/25 Silas Solis MD [address] [place] [address] [place] [address] Consulting Physician Otolaryngology 07/02/25
[2025-07-03 13:37] LABS: Hemoglobin A1C 5.6 % (<5.7)
[2025-07-03 14:20] LABS: Cholesterol 191 mg/dL (0-200); HDL Direct 33 mg/dL; Triglycerides 424 mg/dL (<150)
[2025-07-03 14:53] LABS: Prostate Specific Antigen 0.8 ng/mL (< OR = 4.0)
[2025-07-12 04:07] LABS: Free Testosterone (Direct) 26.9 pg/mL (6.6-18.1)
== END 2025-07-03 09:11 | disposition home or self-care (01) ==
LOC: ANHGOSHLAB 09:11
PROVIDERS: PCP Internal Medicine; Visit Provider Internal Medicine
DX: E78.2 Mixed hyperlipidemia (principal); R73.9 Hyperglycemia, unspecified; I10 Essential (primary) hypertension; Z79.890 Hormone replacement therapy
CPT/HCPCS: 36415; 80061; 83036; 84153; 84402; 84403

== ENCOUNTER 2025-08-20 08:35 | Outpatient (CLI) | payer OTHER, SELFPAY ==
--- OUTSIDE RECORDS SUMMARY | 2025-08-20 09:00 | XMS_ITS | Clinical Summary ---
Author Organization [facility] Address [address] [place] [address] Phone Care Team Providers Care Edge Trimming Machine Operator Name Role Phone Roc Vivar DO [...] this topic Insurance [place] Care Teams Edge Trimming Machine Operator Relationship Specialty Start Date End Date Roc Vivar DO [facility] [facility] [place] [address] PCP - General Internal Medicine 07/27/22
--- OUTSIDE RECORDS SUMMARY | 2025-08-20 09:00 | XMS_ITS | Clinical Summary ---
Author Organization [facility] Address [address] [place] [address] Care Team Providers Care Demonstrator Sales Name Role Phone Roc Vivar DO Primary Care Provider Silas Solis MD Unavailable [phone] Allergies No known active allergies Medications sertraline [...] for 9 doses 9 tablet 5 Active meclizine (ANTIVERT) 25 mg tablet Take 1 tablet (25 mg total) by mouth 3 (three) times a day 5 Active methylPREDNISol one (MEDROL DOSEPACK) 4 mg Dosepack TAKE THE ENTIRE DAYS DOSE A SINGLE DOSE IN THE MORNING 5 Active Active Problems Problem Noted Date Diagnosed Date Sensorineural hearing loss (SNHL) of both ears 0 07/29/2025 Abscessed tooth 07/28/2025 Adenoiditis 07/28/2025 Chest pain 07/28/2025 Chronic eustachian tube dysfunction 07/28/2025 Chronic pansinusitis 07/28/2025 Chronic parotitis 07/28/2025 Chronic vertigo 07/28/2025 Degeneration of meniscus of left knee 07/28/2025 Dizzy 07/28/2025 Dysequilibrium 07/28/2025 Dyslipidemia 07/28/2025 Elevated serum creatinine 07/28/2025 Epididymal mass 07/28/2025 Fatigue 07/28/2025 Generalized headaches 07/28/2025 GERD (gastroesophageal reflux disease) 5 Grade II diastolic dysfunction 07/28/2025 Hematuria 07/28/2025 Herpes simplex type 1 infection 07/28/2025 Hyperglycemia 07/28/2025 Hypogonadism in male 07/28/2025 Hypokalemia 07/28/2025 Left knee pain 07/28/2025 LPRD (laryngopharyngeal reflux disease) 07/28/20 Nasal obstruction 07/28/2025 Nasal septal deviation 07/28/2025 Neck pain 07/28/2025 Noncompliance with medication regimen 07/28/2025 Patellofemoral arthritis 07/28/2025 Adenomatous polyp of stomach 07/28/2025 Polyp of stomach 07/28/2025 Restless leg syndrome 07/28/2025 Scrotal swelling 07/28/2025 SOB (shortness of breath) 07/28/2025 Sore throat 07/28/2025 Throat pain 07/28/2025 Viral labyrinthitis of both ears 07/28/2025 Bronchitis 07/28/2025 COPD (chronic obstructive pulmonary disease) COPD exacerbation 07/28/2025 Rhinitis 07/28/2025 Chronic low back pain 07/28/2025 Acute recurrent maxillary sinusitis 07/28/2025 Anxiety and depression 07/28/2025 Hypertension 07/28/2025 Hypertriglyceridemia 07/28/2025 Syncope 07/28/2025 Anxiety disorder 06/03/2024 Chronic obstructive pulmonary disease 06/03/2024 Hyperlipidemia 06/03/2024 Syncope and collapse 12/29/2023 HTN (hypertension) 12/29/2023 Erectile dysfunction 04/04/2023 Lower urinary tract symptoms due to benign prostatic hyperplasia 12/29/2022 Primary erectile dysfunction 12/29/2022 Spermatocele 12/29/2022 Lower urinary tract symptoms 12/29/2022 Pain of lower extremity 10/18/2022 Acute bronchitis 11/09/2019 Acute bronchospasm 11/09/2019 Acute maxillary sinusitis 11/09/2019 Diverticulosis of large intestine without hemorr nichelle 11/11/2017 Acute low back pain 11/03/2017 Microscopic hematuria 11/03/2017 Assessment & Plan (11/03/2017 1:32 PM SHOE REPAIRER APPRENTICE): Ct abd/pel ordered to R/O kidney stones. Patient citing lack of insurance, and he isn't sure he will have the study done. Referred to urology for further eval/tx. Rx given for acute pain relief. Patient understands that we do not manage chronic pain at this office. History of acute pancreatitis 10/10/2017 Essential hypertension 10/10/2017 Assessment & Plan (11/03/2017 1:32 PM SHOE REPAIRER APPRENTICE): Hypertension is improving with treatment. Dietary sodium restriction. Regular aerobic exercise. Stop smoking. Continue current medications. Blood pressure will be reassessed at the next regular appointment. Reactive airway disease 10/10/2017 Tobacco use disorder 10/10/2017 Assessment & Plan (11/03/2017 1:33 PM SHOE REPAIRER APPRENTICE): Advised patient to quit. Alcohol abuse 10/10/2017 Encounters Date Type Department Care Team Description 07/29/2025 9:28 PM CDT - 07/29/2025 11:59 PM CDT Hospital Encounter [facility] [address] [place] [id number] Discharge Disposition: Discharge to home or self care 07/28/2025 10:20 AM CDT Office Visit [facility] ([facility]) - [facility] Medicine ENT [address] [facility] 11[address] [place] [address] [place] [address] Veronica Pierson MD Dizzy (Primary Dx); Sensorineural hearing loss (SNHL) of both ears 07/28/2025 10:00 AM CDT Procedure visit [facility] Medicine Otolaryngology [address] [place] [address] 11[address] [place] [address] [place] [address] Sensorineural hearing loss, asymmetrical (Primary Dx) 06/26/2025 Telephone [facility] Medicine Otolaryngology [address] [place] [address] Jessica Lincoln MS 06/08/2025 8:31 PM CDT - 06/08/2025 9:36 PM CDT Emergency [facility] Emergency Department [address] [place] [address] Primary hypertension (Primary Dx); Medication refill Discharge Disposition: Discharge to home or self care from Last 3 Months Immunizations Immunization Administration Dates Next Due Influenza, Unspecified 10/10/2017(Deferred: Chitra ent Refused) Surgical History Surgery Date Site/Laterality Comments CLEFT PALATE REPAIR ESOPHAGOGASTRODUODENOSCOPY 07/19/2022 ESOPHAGOGASTRODUODENOSCOPY 11/30/2022 - 12/27/2022 COLONOSCOPY 07/19/2022 SINUS SURGERY 1965 Medical History Medical History Date Comments Pancreatitis 07/2017 Hypertension 1979 Alcohol abuse Tobacco abuse Asthma Colon polyp Esophageal polyp BPV (benign positional vertigo) Sleep apnea [id number] GERD (gastroesophageal reflux disease) 1975 Dizziness oct 1980 Headache 1975 Dental disease Sinusitis [id number] Ear problems 1965 Speech impairment 1964 COPD (chronic obstructive pulmonary disease) 202 4 Family History Medical History Relation Name Comments [...] on file Legal Sex Male 7:09 PM SHOE REPAIRER APPRENTICE Gender Identity Not on file Sexual Orientation [...] CDT Inhaled Oxygen Concentration - - Weight 97.1 kg (214 lb) 07/28/2025 10:27 AM CDT Height 193 cm (6' 4) 07/28/2025 10:27 AM CDT Body Mass Index 26.05 07/28/2025 10:27 AM CDT Plan of Treatment Health Maintenance [...] Hepatitis C Screening Discontinued Influenza Vaccine Discontinued Procedures Procedure Name Priority Date/Time Associated Diagnosis Comments NEURO CT OUTSIDE REFERENCE Routine 07/29/2025 9:28 PM CDT AUDBASE RESULTS 07/28/2025 10:03 AM CDT from Last 3 Months Results * Neuro CT Outside Reference (07/29/2025 9:28 PM CDT) Impressions [facility] - 07/29/2025 9:28 PM CDT These images are for Reference purposes only and have not been reviewed by [facility]. There will be no report generated by a [facility] Radiologist. Narrative [facility]_P[facility] - 07/29/2025 9:28 PM CDT EXAMINATION: Images For Reference Purposes Only Veronica Pierson MD IMG CT PROCEDURES Final Resul t [facility] * AudBase Results (07/28/2025 10:03 AM CDT) Provider Scanning AUDIOLOGY SERVICES ORDERABLES Final Result from Last 3 Months Insurance [facility] Care Teams Demonstrator Sales Relationship Specialty Start Date End Date Roc Vivar DO PCP - General Internal Medicine 06/27/25 Silas Soils MD [address] [place] [address] Consulting Physician Otolaryngology 07/02/25
[2025-08-20 15:48] LABS: Cholesterol 175 mg/dL (0-200); HDL Direct 30 mg/dL; Magnesium 2.3 mg/dL (1.6-2.3); Triglycerides 474 mg/dL (<150)
[2025-08-20 17:04] LABS: Vitamin B12 301.0 pg/mL (239-931)
[2025-08-20 17:43] LABS: Thyroid Stimulating Hormone Reflex 1.590 uIU/mL (0.465-4.68)
== END 2025-08-20 08:36 | disposition home or self-care (01) ==
LOC: ANHGOSHLAB 08:36
PROVIDERS: PCP Internal Medicine; Visit Provider Nurse Practitioner Family
DX: R53.82 Chronic fatigue, unspecified (principal); E55.9 Vitamin D deficiency, unspecified
CPT/HCPCS: 36415; 80061; 82306; 82607; 83735; 84443